=== PATIENT | female | born 1985 | race Caucasian/White ===

== ENCOUNTER 2023-04-16 16:51 | Emergency (ER) | payer OTHER ==
[~2023-04-16] VITALS: Ht 160 cm; Wt 65.0 kg
[2023-04-16 16:56] VITALS: O2SAT 98
[2023-04-16 20:00] VITALS: BP 110/62; PULSE 87; RESP 20; TEMP 97.6
== END 2023-04-16 22:29 | disposition left against medical advice (07) ==
LOC: ER 16:51
DX: F10.129 Alcohol abuse with intoxication, unspecified (principal)
CPT/HCPCS: 82962; 99283